=== PATIENT | female | born 1980 | race Two or more races ===

== ENCOUNTER 2017-04-26 10:59 | Outpatient (CLI) | payer OTHER | END 2017-04-26 11:11 | disposition home or self-care (01) | LOC: SONOGRAMA 10:59 | DX: N84.0 Polyp of corpus uteri (principal) ==

== ENCOUNTER 2017-06-19 14:06 | Outpatient (CLI) | payer OTHER | END 2017-06-19 14:25 | disposition home or self-care (01) | LOC: LAB 14:06 | DX: N80.9 Endometriosis, unspecified (principal); N84.0 Polyp of corpus uteri ==

== ENCOUNTER 2018-07-06 02:55 | Inpatient (IN) | payer OTHER ==
[~2018-07-06] VITALS: Ht 152.4 cm; Wt 3.2 kg
== END 2018-07-09 09:48 | DRG 788 ==
LOC: OB/GYN 02:55 → LDR 02:55 → OB/GYN 08:28
PROVIDERS: ADMIT Specialist
PROC: 0UB90ZZ Excision of Uterus, Open Approach (ICD-10-PCS; 2018-07-06)
PROC: 4A0HXFZ Measurement of Products of Conception, Cardiac Rhythm, External Approach (ICD-10-PCS; 2018-07-06)
PROC: 10D00Z1 Extraction of Products of Conception, Low, Open Approach (ICD-10-PCS; principal; 2018-07-06 07:00)
DX: O82 Encounter for cesarean delivery without indication (principal); O62.1 Secondary uterine inertia; O34.13 Maternal care for benign tumor of corpus uteri, third trimester; Z3A.40 40 weeks gestation of pregnancy; Z37.0 Single live birth; D25.9 Leiomyoma of uterus, unspecified

== ENCOUNTER 2020-09-25 05:01 | Inpatient (IN) | payer OTHER ==
[~2020-09-25] VITALS: Ht 154.9 cm; Wt 2.7 kg
[2020-09-25] MEDS ORDERED: PRENATAL CAPLE1 EAC1 PO (06:04)
[2020-09-25] MEDS ORDERED: IRON325 MG PO (06:05)
== END 2020-09-28 17:01 | disposition home or self-care (01) | DRG 788 ==
LOC: LDR 05:01 → O/R 08:32 → SURG-SUITE 12:48
PROVIDERS: ADMIT Specialist; ATTEND Specialist
PROC: 4A1HXFZ Monitoring of Products of Conception, Cardiac Rhythm, External Approach (ICD-10-PCS; 2020-09-25)
PROC: 10D00Z1 Extraction of Products of Conception, Low, Open Approach (ICD-10-PCS; principal; 2020-09-25 07:15)
DX: O65.5 Obstructed labor due to abnormality of maternal pelvic organs (principal); O34.211 Maternal care for low transverse scar from previous cesarean delivery; N99.4 Postprocedural pelvic peritoneal adhesions; Z37.0 Single live birth; Z3A.37 37 weeks gestation of pregnancy